=== PATIENT | female | born 1950 | race Caucasian/White ===

== ENCOUNTER 2017-04-13 18:35 | Emergency (ER) | payer OTHER ==
--- NOTE | 2017-04-13 18:58 | EDM.PDOC ---
ED HPI GENERAL MEDICAL PROBLEM - General Chief Complaint: Neurological Problem Stated Complaint: FALL/PAIN RT EYE Time Seen by Provider: 04/13/17 18:58 Source of Information: Reports: Patient - History of Present Illness INITIAL COMMENTS - FREE TEXT/NARRATIVE: HISTORY AND PHYSICAL: History of present illness: []Patient presents with history of viral symptoms 2 weeks ago with mild cold symptoms lasting 2-4 days which resolved Today at 1 PM she noted I weakness inability to close her eye as well as difficulty with drinking due to left facial weakness water was running out of the right coronary of her mouth as she was trying to drink from a bottle of water no other motor weakness upper and lower extremities are intact 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 Past medical history: As per history of present illness and as reviewed below otherwise noncontributory. Surgical history: As per history of present illness and as reviewed below otherwise noncontributory. Social history: No reported history of drug or alcohol abuse. Family history: As per history of present illness and as reviewed below otherwise noncontributory. Physical exam: HEENT: Atraumatic, normocephalic, pupils reactive, negative for conjunctival pallor or scleral icterus, mucous membranes moist, throat clear, neck supple, nontender, trachea midline. Lungs: Clear to auscultation, breath sounds equal bilaterally, chest nontender. Heart: S1S2, regular, negative for clicks, rubs, or JVD. Abdomen: Soft, nondistended, nontender. Negative for masses or hepatosplenomegaly. Negative for costovertebral tenderness. Pelvis: Stable nontender. Genitourinary: Deferred. Rectal: Deferred. Extremities: Atraumatic, negative for cords or calf pain. Neurovascular unremarkable. Neuro: Awake, alert, oriented. Cranial nerves II through XII unremarkable on left right cranial nerve VII lesion affecting forehead brow unable to close eye as well as lower facial droop no problem with speech or swallowing. Cerebellum unremarkable. Motor and sensory unremarkable throughout. Exam nonfocal. Skin no rash such as zoster skin is essentially unremarkable Diagnostics: []Lab as below EKG Chest [address] no contrast Lyme titer pending Therapeutics: solu-Medrol 125 mg IV GenTeal ophthalmic drops eye patch Impression: []Lynn's palsy on the right Definitive disposition and diagnosis as appropriate pending reevaluation and review of above. 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: Musculoskeletal History: Reports: None Neurological History: Reports: None Psychiatric History: Reports: None Endocrine/Metabolic History: Reports: Diabetes, Type II Hematologic History: Reports: None Immunologic History: Reports: None Oncologic (Cancer) History: Reports: None Dermatologic History: Reports: None - Infectious Disease History Infectious Disease History: Reports: None - Past Surgical History Head Surgeries/Procedures: Reports: None HEENT Surgical History: Reports: None Cardiovascular Surgical History: Reports: None Respiratory Surgical History: Reports: None GI Surgical History: Reports: None Female Surgical History: Reports: None Endocrine Surgical History: Reports: None Musculoskeletal Surgical History: Reports: None Social & Family History - Family History Family Medical History: Noncontributory - Tobacco Use Smoking Status *Q: Never Smoker Second Hand Smoke Exposure: No - Caffeine Use Caffeine Use: Reports: None - Recreational Drug Use Recreational Drug Use: No ED ROS GENERAL - Review of Systems Review Of Systems: ROS reveals no pertinent complaints other than HPI. ED EXAM, GENERAL - Physical Exam Exam: See Below Course - Vital Signs Last Recorded V/S: Last Vital Signs Temp 36.2 C 04/13/17 18:41 Pulse 86 04/13/17 18:55 Resp 20 04/13/17 18:55 BP 178/94 H 04/13/17 18:55 Pulse Ox 97 04/13/17 18:55 - Orders/Labs/Meds Orders: Active Orders 24 hr Category Date Time Status EKG 12 Lead [EKG Documentation Completion] [RC] STAT Care 04/13/17 18:57 Active Chest 1V Frontal [CR] Stat Exams 04/13/17 19:25 Taken Head wo Cont [CT] Stat Exams 04/13/17 18:57 Taken LYME/B.BURGDORFERI IGG/IGM [REF] Stat Lab 04/13/17 19:22 Received UA W/MICROSCOPIC [URIN] Stat Lab 04/13/17 18:57 Uncollected Labs: Laboratory Tests 04/13/17 04/13/17 04/13/17 Range/Units 19:22 19:22 19:22 WBC 10.93 (4.0-11.0) K/uL RBC 4.62 (4.30-5.90) M/uL Hgb 14.7 (12.0-16.0) g/dL Hct 41.6 (36.0-46.0) % MCV 90.0 (80.0-98.0) fL MCH 31.8 (27.0-32.0) pg MCHC 35.3 (31.0-37.0) g/dL RDW Std Deviation 43.1 (28.0-62.0) fl RDW Coeff of Carole 13 (11.0-15.0) % Plt Count 272 (150-400) K/uL MPV 9.70 (7.40-12.00) fL Neut % (Auto) 58.8 (48.0-80.0) % Lymph % (Auto) 33.8 (16.0-40.0) % Briscoe % (Auto) 6.2 (0.0-15.0) % Eos % (Auto) 1.0 (0.0-7.0) % Baso % (Auto) 0.2 (0.0-1.5) % Neut # (Auto) 6.4 H (1.4-5.7) K/uL Lymph # (Auto) 3.7 H (0.6-2.4) K/uL Briscoe # (Auto) 0.7 (0.0-0.8) K/uL Eos # (Auto) 0.1 (0.0-0.7) K/uL Baso # (Auto) 0.0 (0.0-0.1) K/uL Nucleated RBC % 0.0 /100WBC Nucleated RBCs # 0 K/uL INR 0.99 (0.86-1.11) Sodium 139 (136-146) mmol/L Potassium 4.3 (3.5-5.1) mmol/L Chloride 104 (98-110) mmol/L Carbon Dioxide 26 (21-31) mmol/L BUN 21 (6.0-23.0) mg/dL Creatinine 0.9 (0.6-1.5) mg/dL Est Cr Clr Drug Dosing 53.10 mL/min Estimated GFR (MDRD) > 60.0 ml/min Glucose 185 H (60-110) mg/dL Calcium 10.1 (8.8-10.8) mg/dL Total Bilirubin 1.3 (0.1-1.5) mg/dL AST 18 (5-40) IU/L ALT 26 (8-54) IU/L Alkaline Phosphatase 83 (40-150) Creatine Kinase (9-236) IU/L CK-MB (CK-2) (0-6.6) ng/ml Troponin I (0.0-0.29) NG/ML Total Protein 7.7 (6.0-8.0) g/dL Albumin 4.6 (3.4-4.8) g/dL Globulin 3.1 (2.0-3.5) g/dL Albumin/Globulin Ratio 1.5 (1.3-2.8) 04/13/17 04/13/17 Range/Units 19:22 19:22 WBC (4.0-11.0) K/uL RBC (4.30-5.90) M/uL Hgb (12.0-16.0) g/dL Hct (36.0-46.0) % MCV (80.0-98.0) fL MCH (27.0-32.0) pg MCHC (31.0-37.0) g/dL RDW Std Deviation (28.0-62.0) fl RDW Coeff of Carole (11.0-15.0) % Plt Count (150-400) K/uL MPV (7.40-12.00) fL Neut % (Auto) (48.0-80.0) % Lymph % (Auto) (16.0-40.0) % Briscoe % (Auto) (0.0-15.0) % Eos % (Auto) (0.0-7.0) % Baso % (Auto) (0.0-1.5) % Neut # (Auto) (1.4-5.7) K/uL Lymph # (Auto) (0.6-2.4) K/uL Briscoe # (Auto) (0.0-0.8) K/uL Eos # (Auto) (0.0-0.7) K/uL Baso # (Auto) (0.0-0.1) K/uL Nucleated RBC % /100WBC Nucleated RBCs # K/uL INR (0.86-1.11) Sodium (136-146) mmol/L Potassium (3.5-5.1) mmol/L Chloride (98-110) mmol/L Carbon Dioxide (21-31) mmol/L BUN (6.0-23.0) mg/dL Creatinine (0.6-1.5) mg/dL Est Cr Clr Drug Dosing mL/min Estimated GFR (MDRD) ml/min Glucose (60-110) mg/dL Calcium (8.8-10.8) mg/dL Total Bilirubin (0.1-1.5) mg/dL AST (5-40) IU/L ALT (8-54) IU/L Alkaline Phosphatase (40-150) Creatine Kinase 112 (9-236) IU/L CK-MB (CK-2) 1.4 (0-6.6) ng/ml Troponin I < 0.10 (0.0-0.29) NG/ML Total Protein (6.0-8.0) g/dL Albumin (3.4-4.8) g/dL Globulin (2.0-3.5) g/dL Albumin/Globulin Ratio (1.3-2.8) Meds: Medications Discontinued Medications Generic Name Dose Route Start Last Admin Trade Name Freq PRN Reason Stop Dose Admin Methylprednisolone Sodium Succinate 125 mg 04/13/17 19:32 Solu-Medrol IVPUSH 04/13/17 19:33 ONETIME ONE Departure - Departure Time of Disposition: 20:23 Disposition: Home, Self-Care 01 Condition: Good Clinical Impression: Lynn's palsy - Discharge Information Forms: ED Department Discharge Additional Instructions: Medication as prescribed Return if symptoms persist or worsen or new concerning symptoms develop Follow-up with primary care in 2 weeks sooner as needed Marija Hwang [facility] [address] [place] [id number] The following information is given to patients seen in the emergency department who are being discharged to home. This information is to outline your options for follow-up care. We provide all patients seen in our emergency department with a follow-up referral. The need for follow-up, as well as the timing and circumstances, are variable depending upon the specifics of your emergency department visit. If you don't have a primary care physician on staff, we will provide you with a referral. We always advise you to contact your personal physician following an emergency department visit to inform them of the circumstance of the visit and for follow-up with them and/or the need for any referrals to a consulting specialist. The emergency department will also refer you to a specialist when appropriate. This referral assures that you have the opportunity for follow-up care with a specialist. All of these measure are taken in an effort to provide you with optimal care, which includes your follow-up. Under all circumstances we always encourage you to contact your private physician who remains a resource for coordinating your care. When calling for follow-up care, please make the office aware that this follow-up is from your recent emergency room visit. If for any reason you are refused follow-up, please contact the [facility] emergency department at and asked to speak to the emergency department charge nurse. - My Orders Last 24 Hours: My Active Orders 04/13/17 18:57 EKG 12 Lead [EKG Documentation Completion] [RC] STAT Head wo Cont [CT] Stat UA W/MICROSCOPIC [URIN] Stat 04/13/17 19:22 LYME/B.BURGDORFERI IGG/IGM [REF] Stat 04/13/17 19:25 Chest 1V Frontal [CR] Stat - Assessment/Plan Last 24 Hours: My Active Orders 04/13/17 18:57 EKG 12 Lead [EKG Documentation Completion] [RC] STAT Head wo Cont [CT] Stat UA W/MICROSCOPIC [URIN] Stat 04/13/17 19:22 LYME/B.BURGDORFERI IGG/IGM [REF] Stat 04/13/17 19:25 Chest 1V Frontal [CR] Stat
[2017-04-13] MEDS ORDERED: methylPREDNISolone Sodium Succinate 125 MG/2 ML SDV IVPUSH ONE (19:32)
[2017-04-13 20:01] LABS: CHLORIDE,CL 104 mmol/L (98-110); SODIUM,NA 139 mmol/L (136-146)
[2017-04-13 20:57] VITALS: BP 163/81
--- NOTE | 2017-04-14 16:17 | CT ---
EXAM DATE: 04/13/17 PATIENT'S AGE: 67 Patient: CURT LOMBARDO Facility: [employer], [place] Site . Site : 1950 Study: CT Head [id number]/20/2017 7:44:09 PM Ordering Physician: Anam Newman Final Report: HISTORY: Weakness. TECHNIQUE: Noncontrast head CT. COMPARISON: No prior. FINDINGS: There is no acute intracranial hemorrhage or acute ischemic infarct. No mass effect or midline shift. No hydrocephalus. There are few areas of patchy white matter low attenuation which are nonspecific but likely reflect sequelae of chronic small vessel ischemic changes. No hydrocephalus. No acute loss of lee- white differentiation. Mastoid air cells are clear. Paranasal sinuses are clear. No acute skull fracture. IMPRESSION: No acute intracranial disease. Dictated by Lukas Ibanez MD @ 04/13/2017 8:04:17 PM Dictated by: Lukas Ibanez MD @ 04/13/2017 20:04:24 (Electronic Signature) Report Signed by Proxy. [facility]
--- NOTE | 2017-04-14 16:18 | CR ---
EXAM DATE: 04/13/17 PATIENT'S AGE: 67 Patient: CURT LOMBARDO Facility: [place], [place] Site . Site : 1950 Study: XRay Chest [id number]/20/2017 7:47:46 PM Ordering Physician: Anam Newman Final Report: HISTORY: Weakness, shortness of breath. TECHNIQUE: One view of the chest. COMPARISON: No prior. FINDINGS: Cardiac size and pulmonary vasculature are within normal limits. There is no acute lung infiltrate or pulmonary edema. No pneumothorax. No moderate or large pleural effusion. IMPRESSION: No acute disease. Dictated by Lukas Ibanez MD @ 04/13/2017 8:05:24 PM Dictated by: Lukas Ibanez MD @ 04/13/2017 20:05:29 (Electronic Signature) Report Signed by Proxy. [facility]
== END 2017-04-13 20:45 | disposition home or self-care (01) ==
LOC: MW.ED 18:35
DX: G51.0 Bell's palsy (principal); I10 Essential (primary) hypertension; E11.9 Type 2 diabetes mellitus without complications
CPT/HCPCS: 36415; 70450; 71010; 80053; 82550; 82553; 84484; 85025; 85610; 86618; 96374; 99284; J2930; 86617; 93005

== ENCOUNTER 2017-04-24 12:02 | Emergency (ER) | payer OTHER ==
[2017-04-24 12:11] VITALS: BP 140/84
[2017-04-24] MEDS ORDERED: Lidocaine 1% 20 ML MDV INJECT ONE (12:17)
[2017-04-24] MEDS ORDERED: Diphtheria,Pertussis(Acell),Tetanus Vaccine 0.5 ML Syringe IM ONE (12:41)
[2017-04-24] MEDS ORDERED: Bacitracin Oint 1 GM U/D Packet TOP ONE (12:46)
--- NOTE | 2017-04-24 12:46 | EDM.PDOC ---
ED HPI GENERAL MEDICAL PROBLEM - General Chief Complaint: Laceration Stated Complaint: CUT TO LEFT POINTER FINGER Time Seen by Provider: 04/24/17 12:11 Source of Information: Reports: Patient, Family History Limitations: Reports: No Limitations - History of Present Illness INITIAL COMMENTS - FREE TEXT/NARRATIVE: HISTORY AND PHYSICAL: []67-year-old female presenting with laceration to her left index finger History of Present Illness: []Patient was cutting corn on the cob to freeze and nicked the middle of her left index finger Review of Systems: As per history of present illness and below otherwise all systems reviewed and negative. Past medical history: As per history of present illness and as reviewed below otherwise noncontributory. Surgical history: As per history of present illness and as reviewed below otherwise noncontributory. Social history: No reported history of drug or alcohol abuse. Family history: As per history of present illness and as reviewed below otherwise noncontributory. Physical exam: Alert and oriented, answering questions appropriate, no shortness of breath, nontoxic HEENT: Atraumatic, normocehpalic, pupils reactive, negative for conjunctival pallor or scleral icterus, mucous membranes moist, throat clear, neck supple, nontender, trachea midline. Lungs: Clear to auscultation, breath sounds equal bilaterally, chest non tender. Heart: S1S2, regular, negative for clicks, rubs, or JVD. Abdomen: Soft, nondistended, nontender. Negative for masses or hepatossplenmegaly. Negative for costovertebral tenderness. Pelvis: Stable nontender. Genitourinary: Deferred. Rectal: Deferred Extremities: Atraumatic, negative for cords or calf pain. 2 cm laceration to the mid left index finger anterior surface Neurovascular unremarkable. Neuro: Awake, alert, oriented. Cranial nerves II through XII unremarkable. Cerebellum unremarkable. Motor and sensory unremarkable throughout. Exam nonfocal. Diagnostics: [] Therapeutics: [Sutures] Impression: [Laceration with repair] Plan: [Discharged to home Sutures to be removed in 7 days Tetanus given Follow-up with her primary care] Definitive disposition and diagnosis as appropriate pending reevaluation and review of above. 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: Musculoskeletal History: Reports: None Neurological History: Reports: None, Other (See Below) Psychiatric History: Reports: None Endocrine/Metabolic History: Reports: Diabetes, Type II Hematologic History: Reports: None Immunologic History: Reports: None Oncologic (Cancer) History: Reports: None Dermatologic History: Reports: None - Infectious Disease History Infectious Disease History: Reports: None - Past Surgical History Head Surgeries/Procedures: Reports: None HEENT Surgical History: Reports: None Cardiovascular Surgical History: Reports: None Respiratory Surgical History: Reports: None GI Surgical History: Reports: None Female Surgical History: Reports: None Endocrine Surgical History: Reports: None Other Neurological Surgeries/Procedures: bells palsey Musculoskeletal Surgical History: Reports: None Social & Family History - Family History Family Medical History: Noncontributory - Tobacco Use Smoking Status *Q: Never Smoker Second Hand Smoke Exposure: No - Caffeine Use Caffeine Use: Reports: None - Recreational Drug Use Recreational Drug Use: No ED ROS GENERAL - Review of Systems Review Of Systems: ROS reveals no pertinent complaints other than HPI. ED EXAM, SKIN/RASH Exam: See Below (See dictation) ED SKIN PROCEDURES - Laceration/Wound Repair Left Anterior Medial Finger Lac/Wound length In cm: 2 Appearance: Subcutaneous, Clean Distal NVT: Neuro & Vascular Intact, No Tendon Injury Local Anesthesia - Lidocaine (Xylocaine): 1% Plain Local Anesthetic Volume: 4cc Skin Prep: Saline Exploration/Debridement/Repair: Wound Explored, In a Bloodless Field, Explored to Base Closed with: Sutures Suture Size: 4-0 Suture Type: Prolene, Interrupted, Simple Drain Placement: No Sterile Dressing Applied: Nurse Tetanus Status Addressed: Yes Complications: No Course - Vital Signs Last Recorded V/S: Last Vital Signs Temp 35.9 C 04/24/17 12:08 Pulse 80 04/24/17 12:08 Resp 18 04/24/17 12:08 BP 140/84 04/24/17 12:08 Pulse Ox 98 04/24/17 12:08 - Orders/Labs/Meds Meds: Medications Discontinued Medications Generic Name Dose Route Start Last Admin Trade Name Mark PRN Reason Stop Dose Admin Lidocaine HCl 20 ml 04/24/17 12:17 Xylocaine 1% INJECT 04/24/17 12:18 ONETIME ONE Departure - Departure Time of Disposition: 12:45 Disposition: Home, Self-Care 01 Condition: Good Clinical Impression: Laceration - Discharge Information Instructions: Laceration Care, Adult, [id number], Stitches, Hien, or Adhesive Wound Closure, [id number] Referrals: PCP,Unknown [Primary Care Provider] - Additional Instructions: The following information is given to patients seen in the emergency department who are being discharged to home. This information is to outline your options for follow-up care. We provide all patients seen in our emergency department with a follow-up referral. The need for follow-up, as well as the timing and circumstances, are variable depending upon the specifics of your emergency department visit. If you don't have a primary care physician on staff, we will provide you with a referral. We always advise you to contact your personal physician following an emergency department visit to inform them of the circumstance of the visit and for follow-up with them and/or the need for any referrals to a consulting specialist. The emergency department will also refer you to a specialist when appropriate. This referral assures that you have the opportunity for followup care with a specialist. All of these measure are taken in an effort to provide you with optimal care, which includes your followup. Under all circumstances we always encourage you to contact your private physician who remains a resource for coordinating your care. When calling for followup care, please make the office aware that this follow-up is from your recent emergency room visit. If for any reason you are refused follow-up, please contact the [facility] emergency department at and asked to speak to the emergency department charge nurse. He received sutures while in the emergency room Sutures may be removed in 7 days Tetanus vaccine was given
== END 2017-04-24 13:05 | disposition home or self-care (01) ==
LOC: MW.ED 12:02
DX: S61.211A Laceration without foreign body of left index finger without damage to nail, initial encounter (principal); E11.9 Type 2 diabetes mellitus without complications; Z23 Encounter for immunization; I10 Essential (primary) hypertension
CPT/HCPCS: 12001; 90471; 90715; 99282-25; 99283

== ENCOUNTER 2021-09-09 13:30 | Observation (INO) | payer OTHER ==
[2021-09-09] MEDS ORDERED: Sodium Chloride 0.9% 2.5 ML Syringe FLUSH PRN (13:35)
[2021-09-09] MEDS ORDERED: Sodium Chloride 0.9% 20 ML SDV IV PRN (13:35)
[2021-09-09] MEDS ORDERED: Sodium Chloride 0.9% 10 ML Syringe FLUSH PRN (13:35)
[2021-09-09 14:26] LABS: BLOOD UREA NITROGEN,BUN 13 mg/dL (7.0-18.0); CARBON DIOXIDE,CO2 25.4 mmol/L (21.0-32.0); CHLORIDE,CL 100 mmol/L (98-107); GLUCOSE RANDOM 133 mg/dL (74-106); POTASSIUM,K 3.7 mmol/L (3.5-5.1); SODIUM,NA 138 mmol/L (136-145)
[2021-09-09] MEDS ORDERED: Metoprolol Tartrate 5 MG/5 ML SDV IVPUSH ONE (14:56)
[2021-09-09] MEDS ORDERED: LORazepam 2 MG/ML SDV IVPUSH ONE (14:56)
[2021-09-09] MEDS ORDERED: Ondansetron 4 MG/2 ML SDV IVPUSH PRN (17:32)
[2021-09-09] MEDS ORDERED: Acetaminophen 325 MG Tab PO PRN (17:32)
[2021-09-09] MEDS ORDERED: Albuterol/Ipratropium 3.0-0.5 MG/3 ML Neb Soln NEB PRN (17:34)
[2021-09-09] MEDS ORDERED: 50% Dextrose in Water 50 ML Syringe IVPUSH PRN (17:42)
[2021-09-09] MEDS ORDERED: Glucagon,Human Recombinant 1 MG Vial IM PRN (17:42)
[2021-09-09] MEDS ORDERED: Iopamidol 755 MG/ML 500 ML Multipack Bottle IVPUSH ONE (17:51)
[2021-09-09] MEDS ORDERED: atorvaSTATin 40 MG Tab PO SCH (21:00)
[2021-09-09] MEDS ORDERED: Aspirin 81 MG Tab.Chew PO ONE (22:07)
[2021-09-09] MEDS: metFORMIN 500 MG Tab PO SCH (22:48)
[2021-09-09] MEDS ORDERED: Clopidogrel 75 MG Tab PO ONE (23:35)
[2021-09-09] MEDS: atorvaSTATin 40 MG Tab PO SCH (23:55)
[2021-09-10] MEDS: Labetalol 100 MG/20 ML MDV IVPUSH PRN ×2 (01:13→18:56)
[2021-09-10 06:33] LABS: BLOOD UREA NITROGEN,BUN 10 mg/dL (7.0-18.0); CARBON DIOXIDE,CO2 26.9 mmol/L (21.0-32.0); CHLORIDE,CL 102 mmol/L (98-107); GLUCOSE RANDOM 147 mg/dL (74-106); POTASSIUM,K 3.3 mmol/L (3.5-5.1); SODIUM,NA 138 mmol/L (136-145)
[2021-09-10] MEDS ORDERED: Thyroid 60 MG Tab PO SCH ×3 (07:00→07:30)
[2021-09-10] MEDS ORDERED: Gadobenate Dimeglumine 529 MG/ML 20 ML SDV IVPUSH STA (07:45)
[2021-09-10] MEDS: metFORMIN 500 MG Tab PO SCH ×2 (08:36→10:23)
[2021-09-10] MEDS: Insulin Aspart 100 Units/ML 3 ML Pen SUBCUT SCH ×4 (08:38→17:37)
[2021-09-10] MEDS ORDERED: Aspirin 81 MG Tab.Chew PO SCH (09:00)
[2021-09-10] MEDS ORDERED: Pantoprazole 40 MG in Sodium Chloride 0.9% 10 ML IVPUSH SCH (09:00)
[2021-09-10] MEDS: Clopidogrel 75 MG Tab PO SCH ×2 (10:15→11:54)
[2021-09-10] MEDS: atorvaSTATin 40 MG Tab PO SCH (10:21)
[2021-09-10 17:01] VITALS: BP 157/80; PULSE 87
== END 2021-09-10 19:00 ==
LOC: MW.ED 13:30 → MW.MS 15:14
PROVIDERS: ADMIT Student in an Organized Health Care Education/Training Program; ATTEND Student in an Organized Health Care Education/Training Program
DX: I65.23 Occlusion and stenosis of bilateral carotid arteries (principal); I10 Essential (primary) hypertension; E11.9 Type 2 diabetes mellitus without complications; E78.5 Hyperlipidemia, unspecified; E03.9 Hypothyroidism, unspecified; Z79.899 Other long term (current) drug therapy; Z79.84 Long term (current) use of oral hypoglycemic drugs; Z98.890 Other specified postprocedural states; Z79.4 Long term (current) use of insulin; Z79.82 Long term (current) use of aspirin; Z20.822 Contact with and (suspected) exposure to COVID-19
CPT/HCPCS: 36415; 70450; 70496; 70498; 70553; 71045; 80048; 80053; 80061; 80307; 81001; 83036; 84484; 85025; 85610; 85730; 87635; 93005; A9270; A9577; J1815; J2060; J3490; Q9967; 96374; 96375; 96376; 99285-25; G0378; U0002

== ENCOUNTER 2021-09-13 19:09 | Emergency (ER) | payer OTHER ==
[2021-09-13] MEDS ORDERED: cloNIDine 0.1 MG Tab PO ONE (21:53)
[2021-09-13 22:30] VITALS: BP 131/78
[2021-09-13 22:35] VITALS: PULSE 86
== END 2021-09-13 22:35 | disposition home or self-care (01) ==
LOC: MW.ED 19:09
DX: I10 Essential (primary) hypertension (principal); E11.9 Type 2 diabetes mellitus without complications; Z86.73 Personal history of transient ischemic attack (TIA), and cerebral infarction without residual deficits; Z79.4 Long term (current) use of insulin; Z79.02 Long term (current) use of antithrombotics/antiplatelets; Z79.899 Other long term (current) drug therapy
CPT/HCPCS: 99283

== ENCOUNTER 2022-06-14 07:45 | Emergency (ER) | payer OTHER, MEDICARE ==
[2022-06-14 08:49] LABS: CARBON DIOXIDE,CO2 26.5 mmol/L (21.0-32.0); POTASSIUM,K 3.5 mmol/L (3.5-5.1)
[2022-06-14 10:48] VITALS: PULSE 86
[2022-06-14 11:12] VITALS: BP 175/89
== END 2022-06-14 13:01 | disposition home or self-care (01) ==
LOC: MW.ED 07:45
DX: R07.9 Chest pain, unspecified (principal); I10 Essential (primary) hypertension; E11.9 Type 2 diabetes mellitus without complications; Z79.82 Long term (current) use of aspirin; Z79.899 Other long term (current) drug therapy
CPT/HCPCS: 36415; 71045; 71045-26; 80053; 84484; 85025; 93005; 99285

== ENCOUNTER 2024-04-08 17:58 | Emergency (ER) | payer MEDICARE, OTHER ==
[2024-04-08 20:44] LABS: BASOPHILS ABSOLUTE AUTO 0.07 K/uL (0.00-0.20); BASOPHILS PERCENT AUTO 0.9 % (0.0-1.0); EOSINOPHILS ABSOLUTE AUTO 0.58 K/uL (0.00-0.45); EOSINOPHILS PERCENT AUTO 7.6 % (0.0-6.0); HEMATOCRIT 36.4 % (37.0-47.0); HEMOGLOBIN 12.6 g/dL (12.0-16.0); IMMATURE GRAN ABSOLUTE AUTO 0.02 K/uL (0.00-0.05); IMMATURE GRAN PERCENT AUTO 0.3 % (0.0-0.4); LYMPHOCYTES ABSOLUTE AUTO 3.11 K/uL (1.00-4.80); LYMPHOCYTES PERCENT AUTO 40.9 % (24.0-44.0); MEAN CORPUSCULAR HEMOGLOBIN 30.9 pg (28.0-32.0); MEAN CORPUSCULAR HGB CONC 34.6 g/dL (32.0-36.0); MEAN CORPUSCULAR VOLUME 89.2 fL (83.0-99.0); MEAN PLATELET VOLUME 9.1 fL (9.4-12.3); MONOCYTES ABSOLUTE AUTO 0.89 K/uL (0.00-0.80); MONOCYTES PERCENT AUTO 11.7 % (0.0-8.0); NEUTROPHILS ABSOLUTE AUTO 2.93 K/uL (1.80-7.70); NEUTROPHILS PERCENT AUTO 38.6 % (41.0-71.0); PLATELET COUNT,PLT 317 K/uL (150-400); RED BLOOD CELL COUNT 4.08 M/uL (4.10-5.30)
[2024-04-08 21:20] LABS: A/G RATIO 0.9 (0.9-1.6); ALBUMIN 3.3 g/dL (3.4-5.0); BILIRUBIN TOTAL 0.6 mg/dL (0.2-1.0); CALCIUM 9.1 mg/dL (8.5-10.1); CARBON DIOXIDE,CO2 26.1 mmol/L (21.0-32.0); CREATININE 0.9 mg/dL (0.6-1.0); EST CRCL DRUG DOSING (CG) 48.07 mL/min; POTASSIUM,K 4.5 mmol/L (3.5-5.1); PROTEIN TOTAL,TP 6.8 g/dL (6.4-8.2)
[2024-04-08 21:29] LABS: MAGNESIUM 1.9 mg/dL (1.8-2.4); TSH ULTRASENSITIVE 3.62 uIU/mL (0.36-3.74)
[2024-04-08 23:15] VITALS: BP 170/86; PULSE 80
== END 2024-04-08 23:14 | disposition home or self-care (01) ==
LOC: MW.ED 17:58
DX: I10 Essential (primary) hypertension (principal); E11.9 Type 2 diabetes mellitus without complications; Z79.899 Other long term (current) drug therapy; Z75.8 Other problems related to medical facilities and other health care
CPT/HCPCS: 36415; 70450; 70450-26; 71046; 71046-26; 80053; 83735; 84443; 84484; 85025; 93005; 93010; 99284; 99285

== ENCOUNTER 2024-04-24 20:37 | Emergency (ER) | payer MEDICARE, OTHER ==
[2024-04-24] MEDS ORDERED: Sodium Chloride 0.9% 20 ML SDV IV PRN (21:16)
[2024-04-24 21:21] LABS: BASOPHILS ABSOLUTE AUTO 0.05 K/uL (0.00-0.20); BASOPHILS PERCENT AUTO 0.6 % (0.0-1.0); EOSINOPHILS PERCENT AUTO 4.4 % (0.0-6.0); HEMATOCRIT 36.3 % (37.0-47.0); HEMOGLOBIN 12.7 g/dL (12.0-16.0); IMMATURE GRAN ABSOLUTE AUTO 0.01 K/uL (0.00-0.05); IMMATURE GRAN PERCENT AUTO 0.1 % (0.0-0.4); LYMPHOCYTES ABSOLUTE AUTO 4.31 K/uL (1.00-4.80); LYMPHOCYTES PERCENT AUTO 47.5 % (24.0-44.0); MEAN CORPUSCULAR HEMOGLOBIN 31.2 pg (28.0-32.0); MEAN CORPUSCULAR VOLUME 89.2 fL (83.0-99.0); MONOCYTES ABSOLUTE AUTO 0.91 K/uL (0.00-0.80); NEUTROPHILS PERCENT AUTO 37.4 % (41.0-71.0); PLATELET COUNT,PLT 352 K/uL (150-400); RED BLOOD CELL COUNT 4.07 M/uL (4.10-5.30); WHITE BLOOD CELL COUNT,WBC 9.08 K/uL (3.9-11.3)
[2024-04-24 21:36] LABS: BILIRUBIN,URINE NEGATIVE (NEGATIVE); COLOR,URINE YELLOW; GLUCOSE,URINE NEGATIVE (NEGATIVE); KETONES,URINE NEGATIVE (NEGATIVE); LEUKOCYTE ESTERASE,URINE TRACE (NEGATIVE); NITRITE,URINE NEGATIVE (NEGATIVE); OCCULT BLOOD,URINE NEGATIVE (NEGATIVE); PROTEIN,URINE NEGATIVE (NEGATIVE); UROBILINOGEN,URINE 0.2 EU/dL (<2.0)
[2024-04-24 21:39] LABS: APPEARANCE,URINE HAZY; BACTERIA,URINE 1+ (NEGATIVE); MUCUS,URINE LIGHT (NONE-MOD); RBC,URINE 0-1 (0-2/HPF); SQUAMOUS EPITHELIAL CELLS,UR OCCASIONAL
[2024-04-24 21:40] LABS: A/G RATIO 0.9 (0.9-1.6); ALBUMIN 3.6 g/dL (3.4-5.0); BILIRUBIN TOTAL 0.8 mg/dL (0.2-1.0); CALCIUM 9.6 mg/dL (8.5-10.1); CARBON DIOXIDE,CO2 29.2 mmol/L (21.0-32.0); CREATININE 1.2 mg/dL (0.6-1.0); EST CRCL DRUG DOSING (CG) 36.05 mL/min; MAGNESIUM 2.1 mg/dL (1.8-2.4); POTASSIUM,K 4.1 mmol/L (3.5-5.1); PROTEIN TOTAL,TP 7.6 g/dL (6.4-8.2)
[2024-04-24] MEDS: Sodium Chloride 0.9% 10 ML Syringe FLUSH PRN (21:50)
[2024-04-24] MEDS: Sodium Chloride 0.9% 2.5 ML Syringe FLUSH PRN (21:51)
[2024-04-24] MEDS: Iopamidol 755 MG/ML 500 ML Multipack Bottle IVPUSH ONE (22:11)
[2024-04-25] MEDS: Aspirin 81 MG Tab.Chew PO ONE (01:46)
[2024-04-25] MEDS: Clopidogrel 75 MG Tab PO ONE (01:46)
[2024-04-25 01:48] VITALS: BP 137/80; PULSE 76
== END 2024-04-25 02:39 ==
LOC: MW.ED 20:37
DX: G45.9 Transient cerebral ischemic attack, unspecified (principal); I10 Essential (primary) hypertension; N30.00 Acute cystitis without hematuria; R79.89 Other specified abnormal findings of blood chemistry; E11.9 Type 2 diabetes mellitus without complications; Z98.890 Other specified postprocedural states; Z79.899 Other long term (current) drug therapy
CPT/HCPCS: 36415; 70450; 70496; 70498; 80053; 81001; 82947; 83735; 83880; 85025; 99285; A9270; J3490; Q9967